=== PATIENT | male | born 1990 | race Caucasian/White ===

== ENCOUNTER 2020-04-24 07:08 | Emergency (ER) | payer SELFPAY ==
[~2020-04-24] VITALS: Ht 190.5 cm; Wt 100.0 kg
[2020-04-24] MEDS ORDERED: ONDANSETRON ODT 4 MG TAB.RAPDIS. ONE (07:43)
[2020-04-24] MEDS ORDERED: IBUPROFEN 200 MG TABLET. PO ONE (07:45)
[2020-04-24] MEDS ORDERED: ONDANSETRON ODT 4 MG TAB.RAPDIS. PO ONE (07:45)
--- NOTE | 2020-04-24 07:50 | PHYS DOC ---
Past Medical History Past Medical History: No Pertinent History Past Surgical History: Other Additional Past Surgical Histo: KNEE AND SHOULDER SURGERY Smoking Status: Never Smoker Alcohol Use: None General Adult EDM: Chief Complaint: HEADACHE HPI: HPI: The history was obtained from the patient. Patient is a 29-year-old male with PMH orthopedic injuries who presents with a chief complaint of fatigue and headache. Patient states he has had a gradual onset relatively constant headache over the past 2 weeks. He states he is never had a headache like this before. He has not tried any Motrin or Tylenol at home. States the pain involves his entire head. He states the pain is throbbing in nature. He denies any photophobia or phonophobia. He denies any acute vision or hearing changes. Denies any objective fevers. Denies neck stiffness. he states that he is also had vomiting with every meal over the past 2 weeks. He states he has not been able to keep any food or drink down. He denies any known exposure to coronavirus. He does endorse body aches. He denies any cough. He denies any chest pain. He states he has tried Pepto-Bismol at home with minimal relief. He denies any abdominal pain. Denies any previous abdominal surgeries. States that his greatest concern is his nausea. He denies any drug use including chronic marijuana usage. He denies any alcohol usage. Patient denies acute onset of headache reaching maximal intensity in under one hour. This is neither the worst headache that Patient has ever experienced, nor was the onset timed with exertional activity or trauma. Patient has not experienced any fever, unusual neck pain or stiffness, syncope, or near syncope. Patient denies numbness, tingling, or weakness of the extremities. Patient also denies personal history of intracranial hemorrhage (including SAH), aneurysm, or AV malformation. Review of Systems: Review of Systems: Constitutional: Positive for fatigue Eyes: Denies change in visual acuity. [] HENT: Denies nasal congestion or sore throat. [] Respiratory: Denies cough or shortness of breath. [] Cardiovascular: Denies chest pain or edema. [] GI: Positive for nausea and vomiting : Denies dysuria. [] Musculoskeletal: Positive for muscle aches Integument: Denies rash. [] Neurologic: Positive for headache Endocrine: Denies polyuria or polydipsia. [] Lymphatic: Denies swollen glands. [] Psychiatric: Denies depression or anxiety. [] Heart Score: Risk Factors: Risk Factors: DM, Current or recent (<one month) smoker, HTN, HLP, family history of CAD, obesity. Risk Scores: Score 0 - 3: 2.5% MACE over next 6 weeks - Discharge Home Score 4 - 6: 20.3% MACE over next 6 weeks - Admit for Clinical Observation Score 7 - 10: 72.7% MACE over next 6 weeks - Early Invasive Strategies Current Medications: Current Medications Medications (Trade) Dose Ordered Sig/Tuan Start Time Stop Time Status Last Admin Dose Admin Ibuprofen (Motrin) 600 mg 1X ONCE 04/24/20 07:45 04/24/20 07:46 DC Ondansetron HCl (Zofran Odt) 4 mg STK-MED ONCE 04/24/20 07:43 04/24/20 07:44 DC Allergies: Allergies: Allergies Coded Allergies Type Severity Reaction Last Updated Verified No Known Medication Allergies Allergy Unknown 04/24/20 Yes Physical Exam: PE: Constitutional: Well developed, well nourished, no acute distress, non-toxic appearance. [] HENT: Normocephalic, atraumatic, bilateral external ears normal, oropharynx moist, no oral exudates, nose normal. [] Eyes: PERRLA, EOMI, conjunctiva normal, no discharge. [] Neck: Normal range of motion, no tenderness, supple, no stridor. [] Cardiovascular:Heart rate regular rhythm, no murmur [] Lungs & Thorax: Bilateral breath sounds clear to auscultation [] Abdomen: Soft, nontender, nonacute abdomen. No involuntary guarding or rigidity noted. No acute peritonitis. Skin: Warm, dry, no erythema, no rash. [] Back: No tenderness, no CVA tenderness. [] Extremities: No tenderness, no cyanosis, no clubbing, ROM intact, no edema. [] Neurologic: Alert with intact cognitive function. No aphasia, dysarthria, or neglect. GCS 15. Pupils 3 mm briskly reactive b/l. No APD present. Cranial n erves 2-12 grossly intact; no facial asymmetry present, tongue midline, shoulder shrugging strength intact. Strength 5/5 and symmetric throughout. Light touch sensation intact throughout. Cerebellar testing appropriate without evidence of dysdiadochokinesia. DTR's 2+ in all 4 extremities. Negative pronator drift bilaterally. Gait normal Psychologic: Affect normal, judgement normal, mood normal. [] Current Patient Data: Vital Signs: Vital Signs Date Time Temp Pulse Resp B/P (MAP) Pulse Ox O2 Delivery O2 Flow Rate FiO2 04/24/20 07:30 98.0 69 18 129/72 (91) 99 Room Air 98.0 EKG: EKG: [] Radiology/Procedures: Radiology/Procedures: [] Course & Med Decision Making: Course & Med Decision Making Pertinent Labs and Imaging studies reviewed. (See chart for details) Patient is an overall well-appearing 29-year-old male who presents with multiple complaints including headache, nausea, generalized fatigue. Initial vital signs normal. Physical exam grossly unremarkable. Abdomen without any reproducible tenderness. Kernig sign negative. Burzynski sign negative. Full range motion of the head and neck without difficulty. I did engage the patient in a discussion regarding the possibility of work-up including blood work, adv anced head imaging, and lumbar puncture. Patient did elect for conservative treatment and work-up. He was given oral Motrin and Zofran. On repeat examination patient is sleeping comfortably in the exam room. He has tolerated p.o. Vital signs remained stable including no fever, tachycardia, tachypnea, or hypoxia. Repeat neurologic see remained stable. I do feel it is reasonable to defer further work-up at this time. Overall very low suspicion for meningitis. He was tested for coronavirus as an outpatient and will be notified of pending results. Patient is agreeable to discharge home. He will be discharged home with antiemetics. Return precautions discussed and understood. Patient agreeable to discharge home. Stable for discharge. Dragon Disclaimer: Dragon Disclaimer: This electronic medical record was generated, in whole or in part, using a voice recognition dictation system. Departure Departure Disposition: HOME, SELF-CARE Condition: GOOD Referrals: NO PCP (PCP) Additional Instructions: [facility] [address] [place] [address] [facility] [address] [place] [address] [place] [address] [facility] [address] [place] [address] [facility] [address] [place] [address] [facility] [address] [place] [address] [facility] [address] [place] [address] [facility] [address] [place] [address] [facility] [address] [place] [address] [facility] [address] [place] [address] [facility] Ondansetron Hcl (ZOFRAN) 4 Mg Tablet 4 MG PO PRN TID PRN for NAUSEA/VOMITING, #9 nausea/vomiting Prov: KELLY LITTLEJOHN DO 04/24/20 Ibuprofen (IBUPROFEN) 600 Mg Tablet 600 MG PO PRN Q6HRS PRN for PAIN, #20 TAB take with food or milk Prov: KELLY LITTLEJOHN DO 04/24/20 Justicifation of Admission Dx: Justifications for Admission: Justification of Admission Dx: N/A KELLY LITTLEJOHN DO Apr 24, 2020 07:50
[2020-04-24] MEDS ORDERED: IBUP-1007 PO (08:20)
[2020-04-24] MEDS ORDERED: ONDA4TAB7 PO (08:20)
[2020-04-24 08:40] VITALS: BP 128/74
--- NOTE | 2020-04-26 12:35 | NUR ---
Called patient and discussed negative COVID test results. He verbalized understanding. (Delmar Ruiz RN)
== END 2020-04-24 08:40 | disposition home or self-care (01) ==
LOC: ER 07:08
DX: R51 Headache (principal); R53.83 Other fatigue; Z20.818 Contact with and (suspected) exposure to other bacterial communicable diseases; R11.10 Vomiting, unspecified; Z98.890 Other specified postprocedural states
CPT/HCPCS: 99283; U0003